=== PATIENT | female | born 1950 | race Caucasian/White ===

== ENCOUNTER → 2017-10-08 | Outpatient (CLI) | payer MEDICARE, OTHER ==
--- NOTE | 2017-10-08 09:56 | Diagnostic Imaging Report ---
PROCEDURE: MR imaging cervical spine without contrast. TECHNIQUE: Multiplanar, multisequence MR imaging of the cervical spine was performed without contrast. INDICATION: Neck pain after fall. FINDINGS: The alignment of the cervical spine is normal. The vertebral body heights are well maintained. Prevertebral soft tissues are within normal limits. Posterior fossa is unremarkable. Visualized portions of the spinal cord are normal in signal intensity and morphology. C2-C3 is unremarkable. C3-C4 is unremarkable. At C4-C5, there is some mild bilateral uncovertebral joint hypertrophy with mild bilateral neuroforaminal encroachment. At C5-C6, there is some broad-based annular bulging and bilateral uncovertebral joint hypertrophy. There is narrowing of the AP diameter of the spinal canal to approximately 7.6 mm. There is [id number] bilateral neuroforaminal encroachment. At C6-C7, there is broad-based annular bulging and some bilateral uncovertebral joint hypertrophy. There is effacement of the ventral thecal sac with narrowing of the AP diameter of the spinal canal to approximately 7 mm. There is moderate bilateral neuroforaminal encroachment. C7-T1 is unremarkable. IMPRESSION: Moderate cervical spondylosis and degenerative disc disease at C5-C6 and C6-C7 as detailed above. Dictated by: Dictated on workstation # [id number]
== END ==
LOC: RAD 08:23
PROVIDERS: ATTEND Orthopaedic Surgery Orthopaedic Surgery of the Spine
DX: M48.02 Spinal stenosis, cervical region (principal); M50.222 Other cervical disc displacement at C5-C6 level; M47.812 Spondylosis without myelopathy or radiculopathy, cervical region; M50.322 Other cervical disc degeneration at C5-C6 level; M89.38 Hypertrophy of bone, other site
CPT/HCPCS: 72141

== ENCOUNTER → 2021-10-27 | Outpatient (CLI) | payer MEDICARE, OTHER ==
--- NOTE | 2021-10-27 15:46 | Diagnostic Imaging Report ---
PROCEDURE: CT abdomen and pelvis without contrast. TECHNIQUE: Multiple contiguous axial images were obtained through the abdomen and pelvis without the use of intravenous contrast. Auto Exposure Controls were utilized during the CT exam to meet ALARA standards for radiation dose reduction. INDICATION: Urinary tract infections. The lung bases are clear. The liver and gallbladder are unremarkable. No biliary ductal dilatation is seen. The pancreas and spleen are unremarkable. No adrenal mass is detected. Kidneys are unremarkable. No renal calculi are detected. No definite ureteral calculi or hydronephrosis is identified. Aorta is nonaneurysmal. The bowel loops are normal caliber. No obstruction is identified. No free fluid or fluid collection is seen. Bladder is unremarkable. The uterus is unremarkable. No inflammatory changes are identified. Bony structures are nonacute. IMPRESSION: Unremarkable noncontrast CT of the abdomen and pelvis. No acute abnormality is identified. Dictated by: Dictated on workstation # [id number]
== END ==
LOC: RAD FS 15:19
PROVIDERS: ATTEND Urology
DX: N39.0 Urinary tract infection, site not specified (principal)
CPT/HCPCS: 74176

== ENCOUNTER 2022-08-20 05:41 | Emergency (ER) | payer MEDICARE, OTHER ==
[2022-08-20] MEDS ORDERED: KETOROLAC 30 MG/ML VIAL IVP STA (05:51)
[2022-08-20] MEDS ORDERED: NS IV 1000 ML 1,000 ML IV STA (05:51)
--- NOTE | 2022-08-20 05:51 | ED Abdominal Pain ---
General Stated Complaint: VOMITING,R SIDE ABD/RIB PAIN Source of Information: Patient (VERA GOLDSMITH MD) History of Present Illness Date Seen by Provider: Aug 20, 2022 Time Seen by Provider: 05:49 Initial Comments 72-year-old female presents with right-sided flank pain that started a few days ago. Patient reports that she saw her primary care provider and was found to have a urinary tract infection. She reports that the pain radiates up around to her abdomen. That she cannot find a comfortable position, that she started vomiting yesterday. She denies any fever or chills. (GERARDO MCDONALD DO) Location: Flank (right side) Activities at Onset: None Associated Symptoms: Back Pain (right side wrapping around her flank); No Chest Pain, No Diaphoresis, No Fever/Chills, No Headache, No Heartburn; N ausea/Vomiting; No Rash, No Shortness of Air, No Swelling/Mass in Abdomen, No Syncope, No Weakness (VERA GOLDSMITH MD) Allergies and Home Medications Allergies Coded Allergies: No Known Drug Allergies (Unverified , 08/20/22) Patient Home Medication List Home Medication List Reviewed: Yes (GERARDO MCDONALD DO) Home Medication List Reviewed: Yes (VERA GOLDSMITH MD) Cyclobenzaprine HCl (Cyclobenzaprine HCl) 5 Mg Tablet, 5 MG PO Q8H PRN for muscle spasm/flank pain Prescribed by: VERA GOLDSMITH on 08/20/22925 Hydrocodone/Acetaminophen (Hydrocodone-Acetamin 5-325 mg) 5 Mg-325 Mg Tablet, 1 TAB PO Q8H PRN for PAIN-SEVERE (8-10) Prescribed by: VERA GOLDSMITH on 08/20/22925 Ibuprofen (Ibuprofen) 800 Mg Tablet, 800 MG PO Q8H PRN for PAIN Prescribed by: VERA GOLDSMITH on 08/20/22925 Review of Systems Review of Systems Constitutional: No chills, No fever EENTM: No Symptoms Reported Respiratory: No Symptoms Reported Cardiovascular: No Symptoms Reported Gastrointestinal: Abdominal Pain, Nausea, Vomiting Genitourinary: Flank Pain Musculoskeletal: no symptoms reported Skin: no symptoms reported Psychiatric/Neurological: No Symptoms Reported Endocrine: No Symptoms Reported (GERARDO MCDONALD DO) Past Xygnwfg-Dcllgx-Naivsp Hx Past Medical History Surgery/Hospitalization HX: Hypercholesterolemia, Migraine Headaches, Chronic neck pain with degenerative disc disease (VERA GOLDSMITH MD) Physical Exam Vital Signs Vital Signs - First Documented 08/20/22 05:44 Temp 36.8 Pulse 103 Resp 18 B/P (MAP) 177/87 (117) Pulse Ox 98 O2 Delivery Room Air (VERA GOLDSMITH MD) Vital Signs Capillary Refill : (MCDONALD,GERARDO L DO) Height/Weight/BMI Height: '" Weight: lbs. oz. kg; BMI Method: General Appearance: WD/WN, no apparent distress Respiratory: lungs clear, normal breath sounds Cardiovascular: normal peripheral pulses, regular rate, rhythm Gastrointestinal: soft, tenderness (Right side) Extremities: normal capillary refill Back: CVA tenderness (R) Neurologic/Psychiatric: alert, normal mood/affect, oriented x 3 Skin: normal color, warm/dry (MCDONALD,GERARDO L DO) Gastrointestinal: normal bowel sounds, no pulsatile mass Rectal: deferred Extremities: normal range of motion Skin: No rash (VERA GOLDSMITH MD) Progress/Results/Core Measures Results/Orders Lab Results Laboratory Tests Test 08/20/22 05:57 08/20/22 07:33 Range/Units White Blood Count 7.2 4.3-11.0 10^3/uL Red Blood Count 5.00 3.80-5.11 10^6/uL Hemoglobin 14.4 11.5-16.0 g/dL Hematocrit 43 35-52 % Mean Corpuscular Volume 87 80-99 fL Mean Corpuscular Hemoglobin 29 25-34 pg Mean Corpuscular Hemoglobin Concent 33 32-36 g/dL Red Cell Distribution Width 13.3 10.0-14.5 % Platelet Count 346 130-400 10^3/uL Mean Platelet Volume 9.6 9.0-12.2 fL Immature Granulocyte % (Auto) 1 % Neutrophils (%) (Auto) 73 42-75 % Lymphocytes (%) (Auto) 21 12-44 % Monocytes (%) (Auto) 5 0-12 % Eosinophils (%) (Auto) 0 0-10 % Basophils (%) (Auto) 0 0-10 % Neutrophils # (Auto) 5.2 1.8-7.8 10^3/uL Lymphocytes # (Auto) 1.5 1.0-4.0 10^3/uL Monocytes # (Auto) 0.4 0.0-1.0 10^3/uL Eosinophils # (Auto) 0.0 0.0-0.3 10^3/uL Basophils # (Auto) 0.0 0.0-0.1 10^3/uL Immature Granulocyte # (Auto) 0.1 0.0-0.1 10^3/uL Sodium Level 137 135-145 MMOL/L Potassium Level 3.9 3.6-5.0 MMOL/L Chloride Level 102 98-107 MMOL/L Carbon Dioxide Level 23 21-32 MMOL/L Anion Gap 12 5-14 MMOL/L Blood Urea Nitrogen 18 7-18 MG/DL Creatinine 0.66 0.60-1.30 MG/DL Estimat Glomerular Filtration Rate 94 BUN/Creatinine Ratio 27 Glucose Level 136 H 70-105 MG/DL Calcium Level 9.3 8.5-10.1 MG/DL Corrected Calcium 9.0 8.5-10.1 MG/DL Total Bilirubin 0.5 0.1-1.0 MG/DL Aspartate Amino Transf (AST/SGOT) 24 5-34 U/L Alanine Aminotransferase (ALT/SGPT) 25 0-55 U/L Alkaline Phosphatase 86 40-136 U/L Total Protein 7.4 6.4-8.2 GM/DL Albumin 4.4 3.2-4.5 GM/DL Lipase 23 8-78 U/L Urine Color YELLOW Urine Clarity CLEAR Urine pH 6.5 5-9 Urine Specific Ambler 1.010 L 1.016-1.022 Urine Protein NEGATIVE NEGATIVE Urine Glucose (UA) NEGATIVE NEGATIVE Urine Ketones NEGATIVE NEGATIVE Urine Nitrite NEGATIVE NEGATIVE Urine Bilirubin NEGATIVE NEGATIVE Urine Urobilinogen 0.2 < = 1.0 MG/DL Urine Leukocyte Esterase TRACE H NEGATIVE Urine RBC (Auto) NEGATIVE NEGATIVE Urine RBC NONE /HPF Urine WBC 2-5 /HPF Urine Squamous Epithelial Cells 0-2 /HPF Urine Crystals NONE /LPF Urine Bacteria NEGATIVE /HPF Urine Casts NONE /LPF Urine Mucus NEGATIVE /LPF Urine Culture Indicated NO (VERA GOLDSMITH MD) My Orders Orders - VERA GOLDSMITH MD Fentanyl Inj (Sublimaze Injection) (08/20/22 07:54) Orphenadrine Inj (Ed Only) (Norflex Inje (08/20/22 07:54) Ondansetron Injection (Zofran Injectio (08/20/22 07:54) (VERA GOLDSMITH MD) Medications Given in ED Current Medications Medications Dose Ordered Sig/Miky Route Start Time Stop Time Status Last Admin Dose Admin Ondansetron HCl 4 mg ONCE ONCE IVP 08/20/22 06:00 08/20/22 06:01 DC 08/20/22 05:58 4 MG (VERA GOLDSMITH MD) Vital Signs/I&O 08/20/22 08/20/22 05:44 09:34 Temp 36.8 Pulse 103 78 Resp 18 16 B/P (MAP) 177/87 (117) 108/82 Pulse Ox 98 96 O2 Delivery Room Air Room Air (VERA GOLDSMITH MD) Progress Progress Note #1: Progress Note I assumed care of the patient from Dr. Mcdonald at shift change. She has potential life threatening diagnosis of AAA, Pyelonephritis, Sepsis, Renal colic, kidney failure, diverticulitis, colitis, perforated bowel, ischemic bowel. He had ordered CBC, CMP, Lipase, UA, and CT scan of abdomen/pelvis without contrast. He had ordered Toradol 15 mg IV for pain, Zofran 4 mg IV for nausea/vomiting, NS 1 L IVF bolus for hydration. On review of her CBC she had no acute significant abnormality. WBC was not elevated and not anemic. CMP also without acute significant abnormality with her electrolytes, renal function, LFTs and Lipase. She had mild elevation of her glucose to 130. She was going to CT scan just after 7 am. Progress Note #2: Time: :23 Progress Note On my personal interpretation and review of her CT scan of Abdomen/Pelvis wi thout contrast she does not have any kidney stones, aneurysm or dilation of the abdominal aorta, bowel obstruction or free air. It looks like there might be some inflammation in the right flank and lower quadrant. Awaiting UA and Radiologist reading of her CT scan. 0732 I reviewed the radiologist report of the CT scan of the abdomen and pelvis without contrast. It showed no acute process to account for her pain in the right flank. I reviewed the labs and CT scan with the patient and her spouse. She said that she was still having pain and that the Toradol and Zofran had helped somewhat but she still felt like she was laying on a golf ball the right CVA area. She has some tenderness to palpation. There is no rash to indicate shingles. We will try fentanyl for pain 25 mcg IV, Norflex 60 mg IV for possible muscle spasms, repeat the Zofran 4 mg IV for nausea. Progress Note #3: Time: :22 Progress Note On recheck of the patient after giving some time for the medicine to have started working, she reports that her pain was doing better. She is able to move easier without having the severe pain. Counseled that the urinalysis had only showed trace leukocyte Estrace and it did look like the infection was improving. Will continue with her current antibiotic and finish out that course to completely treat the infection. Advised patient that I could add short course of hydrocodone for severe pain, muscle relaxer such as Flexeril or cyclobenzaprine (choice of muscle relaxer based on her insurance formulary), and ibuprofen with over the counter acetaminophen if her pain is not bad enough to need a narcotic. Continue with alternating ice and heat to help with pain from right CVA area and her flank. Check back with clinic next week if still not improving and can return to ER for repeat evaluation if having worsening or new symptoms. Keep drinking plenty of fluids to stay well hydrated and flush out the urine infection. Reassured patient that while I could not give her a specific answer for her pain we have ruled out some of the big life threatening conditions such as pyelonephritis, kidney failure, diverticulitis, colitis, bowel perforation, mass or tumor in lung or abdomen, cholecystitis, appendicitis. This could be shingles with painful prodrome before developing a rash, musculoskeletal pain and muscle spasm of her lower chest/ribs, inflammation from her kidney infection. Try the medicines as outlined above and see how things go but return or check back if not improving/worsening or has new symptoms. (VERA GOLDSMITH MD) Diagnostic Imaging Diagonstic Imaging: CT Plain Films/CT/US/NM/MRI: abdomen, pelvis Comments NAME: [facility] REC#: [id number] PT STATUS: REG ER : 1950 PHYSICIAN: GERARDO MCDONALD DO ADMIT DATE: 08/20/22/ER FS Draft Date of Exam:08/20/22 CT ABDOMEN/PELVIS WO PROCEDURE: CT abdomen and pelvis without contrast. TECHNIQUE: Multiple contiguous axial images were obtained through the abdomen and pelvis without the use of intravenous contrast. Auto Exposure Controls were utilized during the CT exam to meet ALARA standards for radiation dose reduction. INDICATION: Right flank pain. FINDINGS: The lung bases are clear. The liver appears normal. The gallbladder is unremarkable. The pancreas appears normal. The spleen is not enlarged. The adrenals are normal. The kidneys appear normal. The ureters are clear. The urinary bladder is normal. The appendix is normal. The small bowel is not dilated. The colon is unremarkable. The uterus is present and appears normal. The adnexa are unremarkable. The urinary bladder is normal. IMPRESSION: Unremarkable CT abdomen and pelvis. Dictated on workstation # [id number] Dict: 08/20/22 0718 Trans: 08/20/22 0729 [id number] Interpreted by: SAM CAMACHO MD Electronically signed by: Reviewed: Reviewed by Me (VERA GOLDSMITH MD) Departure Impression Primary Impression: Acute right flank pain Additional Impression: Cystitis without hematuria Disposition: HOME, SELF-CARE Condition: Stable Departure-Patient Inst. Decision time for Depature: 09:28 (VERA GOLDSMITH MD) Referrals: SALTY RIVERS MD (PCP/Family) Primary Care Physician Patient Instructions: Opioids for Short-Term Treatment of Pain ED, Flank Pain ED, Urinary Tract Infection, Adult ED Add. Discharge Instructions: Continue to stay well-hydrated and drink plenty of fluids. Try using the muscle relaxer as needed to help with the pain in your side and back. For severe pain you can take the hydrocodone with Tylenol. This is a narcotic so he would want to take it with food and it can cause constipation if you have to take it regularly. If the pain does not seem to be that severe you could also try taking the ibuprofen for pain and inflammation and plain Tylenol or acetaminophen [id number]. Continue taking the antibiotic to help finish treating the urinary tract infection. You can try alternating ice and heat to your back to help with the pain wrapping around her flank. Check back with the clinic if not improving by early next week. If having worsening or new symptoms you could return to be reevaluated. Scripts Ibuprofen (Ibuprofen) 800 Mg Tablet 800 MG PO Q8H PRN for PAIN for 7 Days, #21 TAB 0 Refills Prov: VERA GOLDSMITH MD 08/20/22 Hydrocodone/Acetaminophen (Hydrocodone-Acetamin 5-325 mg) 5 Mg-325 Mg Tablet 1 TAB PO Q8H PRN for PAIN-SEVERE (8-10) for 5 Days, #15 TAB 0 Refills Prov: VERA GOLDSMITH MD 08/20/22 Cyclobenzaprine HCl (Cyclobenzaprine HCl) 5 Mg Tablet 5 MG PO Q8H PRN for muscle spasm/flank pain for 5 Days, #15 TAB 0 Refills Prov: VERA GOLDSMITH MD 08/20/22 GERARDO MCDONALD DO Aug 20, 2022 05:51 VERA GOLDSMITH MD Aug 20, 2022 07:18
[2022-08-20] MEDS ORDERED: ONDANSETRON 4 MG/2 ML (SDV) Z0FRAN IVP ONE (06:00)
[2022-08-20 06:09] LABS: BASOPHILS % (AUTO) 0 % (0-10); EOSINOPHILS % (AUTO) 0 % (0-10); HEMATOCRIT 43 % (35-52); HEMOGLOBIN 14.4 g/dL (11.5-16.0); LYMPHOCYTES # (AUTO) 1.5 10^3/uL (1.0-4.0); LYMPHOCYTES % (AUTO) 21 % (12-44); MEAN CORPUSCULAR HEMOGLOBIN 29 pg (25-34); MEAN CORPUSCULAR HGB CONC 33 g/dL (32-36); MEAN CORPUSCULAR VOLUME 87 fL (80-99); MEAN PLATELET VOLUME 9.6 fL (9.0-12.2); MONOCYTES # (AUTO) 0.4 10^3/uL (0.0-1.0); MONOCYTES % (AUTO) 5 % (0-12); NEUTROPHILS # (AUTO) 5.2 10^3/uL (1.8-7.8); NEUTROPHILS % (AUTO) 73 % (42-75); PLATELET COUNT 346 10^3/uL (130-400); WHITE BLOOD COUNT 7.2 10^3/uL (4.3-11.0)
[2022-08-20 06:33] LABS: POTASSIUM 3.9 MMOL/L (3.6-5.0)
[2022-08-20 06:34] LABS: ALBUMIN 4.4 GM/DL (3.2-4.5); BILIRUBIN,TOTAL 0.5 MG/DL (0.1-1.0); CALCIUM 9.3 MG/DL (8.5-10.1); CREATININE SERUM 0.66 MG/DL (0.60-1.30); TOTAL PROTEIN 7.4 GM/DL (6.4-8.2)
--- NOTE | 2022-08-20 07:29 | Diagnostic Imaging Report ---
PROCEDURE: CT abdomen and pelvis without contrast. TECHNIQUE: Multiple contiguous axial images were obtained through the abdomen and pelvis without the use of intravenous contrast. Auto Exposure Controls were utilized during the CT exam to meet ALARA standards for radiation dose reduction. INDICATION: Right flank pain. FINDINGS: The lung bases are clear. The liver appears normal. The gallbladder is unremarkable. The pancreas appears normal. The spleen is not enlarged. The adrenals are normal. The kidneys appear normal. The ureters are clear. The urinary bladder is normal. The appendix is normal. The small bowel is not dilated. The colon is unremarkable. The uterus is present and appears normal. The adnexa are unremarkable. The urinary bladder is normal. IMPRESSION: Unremarkable CT abdomen and pelvis. Dictated by: Dictated on workstation # [id number]
[2022-08-20 07:42] LABS: BILIRUBIN,URINE NEGATIVE (NEGATIVE); CLARITY,URINE CLEAR; COLOR,URINE YELLOW; GLUCOSE, URINE (UA) NEGATIVE (NEGATIVE); KETONES,URINE NEGATIVE (NEGATIVE); LEUKOCYTE ESTERASE ,URINE TRACE (NEGATIVE); NITRITE,URINE NEGATIVE (NEGATIVE); PH,URINE 6.5 (5-9); PROTEIN,URINE NEGATIVE (NEGATIVE)
[2022-08-20 07:47] LABS: BACTERIA,URINE NEGATIVE /HPF; SQUAMOUS EPITHELIAL CELL,UR 0-2 /HPF
[2022-08-20] MEDS ORDERED: ONDANSETRON 4 MG/2 ML (SDV) Z0FRAN IVP STA (07:54)
[2022-08-20] MEDS ORDERED: fentaNYL INJ 100 MCG/2 ML AMP IVP STA (07:54)
[2022-08-20] MEDS ORDERED: ORPHENADRINE 60 MG/2 ML (NORFLEX) AMP (ED ONLY) IVP STA (07:54)
[2022-08-20] MEDS ORDERED: ACHD5005 PO (09:26)
[2022-08-20] MEDS ORDERED: IBUP-1780 PO (09:26)
[2022-08-20] MEDS ORDERED: CYCL5TAB PO (09:26)
[2022-08-20 09:34] VITALS: BP 108/82
== END 2022-08-20 09:35 | disposition home or self-care (01) ==
LOC: EDUNIT# 05:41 → ER FS 05:42
DX: N30.90 Cystitis, unspecified without hematuria (principal); Z28.310 Unvaccinated for COVID-19
CPT/HCPCS: 36415; 74176; 80053; 81000; 83690; 85025